=== PATIENT | male | born 1995 | race African-American/Black ===

== ENCOUNTER 2017-04-15 17:52 | Emergency (ER) | payer BC, OTHER ==
[2017-04-15] MEDS ORDERED: cefTRIAXone\\ROCEPHIN 250 MG VIAL ONE (18:12)
[2017-04-15] MEDS ORDERED: Lidocaine 1% 20 ML MDV ONE (18:12)
[2017-04-15] MEDS ORDERED: Azithromycin 250 MG TAB ONE (18:12)
== END 2017-04-15 18:33 | disposition home or self-care (01) ==
LOC: MADERS 17:52
DX: N34.2 Other urethritis (principal)
CPT/HCPCS: 96372; J0696; J2001

== ENCOUNTER 2020-01-15 15:44 | Emergency (ER) | payer BC, SELFPAY | END 2020-01-15 16:41 | disposition home or self-care (01) | LOC: MADERS 15:44 | DX: J02.0 Streptococcal pharyngitis (principal) | CPT/HCPCS: 99406 ==

== ENCOUNTER 2020-06-03 04:54 | Emergency (ER) | payer SELFPAY ==
[2020-06-03 06:12] LABS: Bilirubin Negative (Negative); Blood, Urine Negative (Negative); Clarity Clear (Clear); Glucose, Urine (Dipstick) Negative (Negative); Ketone, Urine Negative (Negative); Leukocyte Negative (Negative); Nitrite Negative (Negative); Protein, Urine (Dipstick) Negative (Neg-Trace)
[2020-06-03 06:13] LABS: Specific Gravity, Urine 1.026 (1.002-1.036)
--- NOTE | 2020-06-03 07:47 | ULT ---
Scrotal sonogram with duplex evaluation HISTORY: Pain. Injury. FINDINGS: The right testicle is 3.3 cm length and the left is 3.8 cm. Each has a normal sonographic a ppearance with good color and spectral Doppler flow. Within the left side of the scrotum, an oval cyst is 2.3 cm x 1.1 cm greatest diameters. Possibly associated with the epididymis. No evidence of v aricocele. Sonographic evaluation of the perineum in region of pain shows no fluid collections or other abnormal ities. IMPRESSION : No evidence of testicular mass or torsion. No evidence of acute injury.
== END 2020-06-03 08:10 | disposition home or self-care (01) ==
LOC: MADERS 04:54
DX: S30.0XXA Contusion of lower back and pelvis, initial encounter (principal); S70.312A Abrasion, left thigh, initial encounter; F17.290 Nicotine dependence, other tobacco product, uncomplicated; V80.010A Animal-rider injured by fall from or being thrown from horse in noncollision accident, initial encounter
CPT/HCPCS: 76870; 81003; 93976

== ENCOUNTER 2022-11-25 11:55 | Emergency (ER) | payer SELFPAY ==
[2022-11-25] MEDS ORDERED: cefTRIAXone\\ROCEPHIN 500 MG VIAL ONE (12:56)
[2022-11-25] MEDS ORDERED: Azithromycin 250 MG TAB ONE (12:56)
[2022-11-25 13:04] LABS: Bilirubin Negative (Negative); Blood, Urine Negative (Negative); Clarity Clear (Clear); Glucose, Urine (Dipstick) Negative (Negative); Ketone, Urine Negative (Negative); Leukocyte Negative (Negative); Nitrite Negative (Negative); Protein, Urine (Dipstick) Negative (Neg-Trace); pH, Urine 6.5 (5.0-9.0)
[2022-11-25 13:07] LABS: Specific Gravity, Urine 1.025 (1.002-1.036)
[2022-11-26 21:36] LABS: Chlam.trachomatis by PCR,Urine Not Detected (NotDetected)
== END 2022-11-25 13:21 | disposition home or self-care (01) ==
LOC: MADERS 11:55
DX: Z20.2 Contact with and (suspected) exposure to infections with a predominantly sexual mode of transmission (principal); Z87.891 Personal history of nicotine dependence
CPT/HCPCS: 81003; 87491; 87591; 96372; 99283; J0696